=== PATIENT | female | born 1990 | race Caucasian/White ===

== ENCOUNTER 2017-08-23 15:14 | Observation (INO) ==
--- NOTE | 2017-08-23 16:02 | Emergency Department Note ---
Disposition Clinical Impression: Ovarian torsion Abdominal pain Qualifiers: Abdominal location: left lower quadrant Qualified Code(s): R10.32 - Left lower quadrant pain Disposition: Admitted As Inpatient Condition: Fair Reasons to Return/Additional Instructions: 22:29 Referrals: Justine Ponce MD [Primary Care Provider] - Tia Lozano [Family Provider] - Forms: ED Satisfaction Letter, Work/School Release Abdominal Pain HPI - General Chief Complaint: ED Abdominal Pain Stated Complaint: ABD pain/vomiting/fever Time Seen by Provider: 08/23/17 15:25 Source: patient Mode of arrival: private vehicle Limitations: no limitations Nursing Notes Reviewed: Yes Vital Signs Reviewed: Yes - History of Present Illness Pt Subjective Complaint: abdominal pain Onset (ago): month(s) Consistency: Worsening Location: LLQ, L flank Pain Severity: severe Pain Scale: 8 Quality: sharp Radiation: back Improves with: other (deep palpation in LLQ) Worsens with: nothing Context: other (Pain arose 8 weeks and has continued since then for past 3.5 months. Patiend denies relief of abdominal pain with defecation. No acute urgency of defection. No personal history of IBS.) Associated symptoms: Reports: nausea, vomiting (Non-bloody, non-bilious yesterday ), fever (intermittent ), chills, hematochezia (painless hematochezia for last 4 months. Endorses formed brown stool. ). Denies: hematemesis, melena , hematuria Treatments prior to arrival: NSAIDs - Related Data LMP (females 10-50): other (4 months) Home Medications Medication Instructions Recorded Confirmed Acetaminophen [Tylenol] 325 mg PO Q6H PRN 07/02/17 07/02/17 Previous Rx's Medication Instructions Recorded Ciprofloxacin [Cipro] 500 mg PO BID #20 tablet 07/02/17 Ondansetron ODT [Zofran ODT] 4 mg SL Q4HR PRN #6 tab.rapdis 07/02/17 Promethazine [Phenergan] 25 mg PO Q8HR PRN #10 tablet 07/02/17 Sulfamethoxazole/Trimeth DS 1 each PO BID #20 tablet 07/02/17 [Bactrim DS] Cephalexin [Keflex] 500 mg PO BID #14 capsule 07/31/17 Allergies Allergy/AdvReac Type Severity Reaction Status Date / Time codeine Allergy See Verified 08/23/17 15:17 Comments ketorolac [From Toradol] Allergy Rash Verified 08/23/17 15:17 Constitutional: Reports: as per HPI, fever (intermittent ), chills Cardiovascular: Reports: as per HPI. Denies: chest pain Respiratory: Reports: as per HPI. Denies: dyspnea Gastrointestinal: Reports: as per HPI Genitourinary: Denies: urgency, dysuria, frequency, hematuria Musculoskeletal: Reports: as per HPI, back pain Abdominal Pain PMH - Past Medical History Medical history: Reports: no medical history Female Surgical History: Reports: breast surgery, cholecystectomy, thyroidectomy V[employer]OCK [employer]AYER history: Reports: other Psychiatric history: Reports: no psych history - Social History Smoking status: Never smoker Alcohol use: Reports: none Drug use: Reports: none Physical Exam - General General appearance: alert, in no apparent distress - Head Head exam: atraumatic, normocephalic - Chest Chest inspection: Present: symmetric chest wall rise. Absent: tenderness - Respiratory Respiratory exam: Present: normal lung sounds bilaterally. Absent: respiratory distress, wheezes - Cardiovascular Cardiovascular exam: Present: normal rhythm, tachycardia, +S1, +S2 - Abdominal Exam Abdominal exam: Present: soft, tenderness (LLQ). Absent: distention, guarding, rebound, rigidity - Female Speculum Exam: Present: other (No abdominal masses palpated. Normal external genitalia. No vaginal lesions or atrophic mucosa noted. White, creme-colored cervical discharge. Bimanual exam limited by patient's body habitus. No adnexal tenderness. No ovaries palpated.) Course - Reevaluation(s) Reevaluation #1: 17:15 - Pelvic exam performed: Medium-sized speculum, lubricated with water- soluble lubricant. Speculum inserted, with applied downward pressure. Exam findings noted in exam section. Reevaluation #2: 18:00 (approx.) - Pt has not yet been able to submit sample for UA and urine test, thus labs pending. CBC and BMP reviewed with Dr. Ricci. Dr. Ricci at bedside to evaluate patient. Reevaluation #3: approx 19:30 CT result has been reviewed with Dr. Ricci, patient and family. U/S technologist has been called for U/S in ED. - Consultations Consultation #1: 22:00- radiology felt to Dr. allred, possible ovarian torsion high Dr. Ricci made consultation with Lease Administration Supervisor. Consultation #2: approx 10:30 PM - Dr. James at bedside with SUPERINTENDENT MENAGERIE. Dr. James recommends surgery, given report findings. Patient agrees with plan. Preoperative planning begun. Pt will be admitted. Vital Signs Temperature 98.5 F 08/23/17 15:16 Pulse Rate 130 08/23/17 15:16 Respiratory Rate 16 08/23/17 15:16 Blood Pressure 136/65 08/23/17 15:16 O2 Sat by Pulse Oximetry 97 08/23/17 15:16 Temperature 99.1 F 08/23/17 16:01 Pulse Rate 105 08/23/17 19:17 Respiratory Rate 16 08/23/17 19:17 Blood Pressure 133/77 08/23/17 19:17 O2 Sat by Pulse Oximetry 97 08/23/17 19:17 Oxygen Delivery Oxygen Delivery Room Air Abdominal Pain - MDM Narrative Medical decision making narrative: 27 y F presenting with LLQ abdominal pain x 4 months. Intermittent fevers. Endorses painless hematochezia. Hematochezia associated with systemic symptoms such as intermittent fever and abdominal pain which is not commonly associated with hemorrhoids and possibly suggestive for underlying etiology. Will proceed with CT, CBC, BMP. White count is elevated. CT abdomen/pelvis demonstrated a rounded heterogeneous mass in the cul-de-sac measuring about 6.5 cm in size, with " New complex free fluid within the pelvis". - Medical Records Medical records reviewed: Yes I reviewed the patient's medical records. - Lab Data Lab results reviewed: Yes I reviewed the patient's lab results. Result diagrams: 08/23/17 15:54 08/23/17 15:54 Lab Results 08/23/17 08/23/17 08/23/17 Range/Units 15:54 15:54 17:22 WBC 12.4 H (4.3-11.1) K/mcL RBC 4.92 (3.82-4.97) M/mcL Hgb 12.9 (11.5-15.4) g/dL Hct 38.5 (35.3-44.9) % MCV 78.3 L (83.0-100.0) fL MCH 26.2 L (28.0-33.3) pg MCHC 33.5 (31.6-35.5) g/dL RDW 14.6 H (11.5-14.5) % Plt Count 384 (140-400) K/mcL MPV 8.9 L (9.4-12.4) fL Immature Gran % 0.6 (0-4) % Seg Neutrophils % 80.2 % Lymphocytes % 12.5 % Monocytes % 6.4 % Eosinophils % 0.1 % Basophils % 0.2 % Neutrophils # 9.9 H (1.6-8.9) K/mcL Lymphocytes # 1.6 (0.6-4.6) K/mcL Monocytes # 0.8 (0.0-1.3) K/mcL Eosinophils # 0.0 (0.0-0.6) K/mcL Basophils # 0.0 (0.0-0.2) K/mcL Sodium 135 L (136-145) mEq/L Potassium 3.8 (3.5-5.1) mEq/L Chloride 102 (98-107) mEq/L Carbon Dioxide 22 L (23-29) mEq/L BUN 8 (6-20) mg/dL Creatinine 0.68 (0.60-1.20) mg/dL Est GFR ( Amer) > 60 (> 60) Est GFR (Non-Af Amer) > 60 (> 60) BUN/Creatinine Ratio 12 (6-26) Glucose 118 H (70-105) mg/dL Calculated Osmolality 279 L (280-300) Calcium 9.7 (8.6-10.3) mg/dL Urine Color (Yellow) Urine Clarity (Clear) Urine pH (5.0-8.0) pH Units Ur Specific [place] (1.010-1.025) Urine Protein (Neg-Trace) mg/dL Urine Glucose (UA) (Normal) mg/dL Urine Ketones (Negative) mg/dL Urine Blood (Negative) Urine Nitrite (Negative) Urine Bilirubin (Negative) Urine Urobilinogen (Normal) mg/dL Ur Leukocyte Esterase (Negative) Urine Microscopic RBC (0-3) per hpf Urine Microscopic WBC (0-3) per hpf Ur Squamous Epith Cells (None-Few) per lpf Urine Bacteria (None-Few) per hpf Hyaline Casts (None-Few) per lpf Ur Culture Indicated? (NO) Urine Test (Negative) Chlam trachomat DNA PCR NOT DETECTED (Not Detect) N.gonorrhoeae DNA (PCR) NOT DETECTED (Not Detect) 08/23/17 08/23/17 Range/Units 18:05 18:05 WBC (4.3-11.1) K/mcL RBC (3.82-4.97) M/mcL Hgb (11.5-15.4) g/dL Hct (35.3-44.9) % MCV (83.0-100.0) fL MCH (28.0-33.3) pg MCHC (31.6-35.5) g/dL RDW (11.5-14.5) % Plt Count (140-400) K/mcL MPV (9.4-12.4) fL Immature Gran % (0-4) % Seg Neutrophils % % Lymphocytes % % Monocytes % % Eosinophils % % Basophils % % Neutrophils # (1.6-8.9) K/mcL Lymphocytes # (0.6-4.6) K/mcL Monocytes # (0.0-1.3) K/mcL Eosinophils # (0.0-0.6) K/mcL Basophils # (0.0-0.2) K/mcL Sodium (136-145) mEq/L Potassium (3.5-5.1) mEq/L Chloride (98-107) mEq/L Carbon Dioxide (23-29) mEq/L BUN (6-20) mg/dL Creatinine (0.60-1.20) mg/dL Est GFR ( Amer) (> 60) Est GFR (Non-Af Amer) (> 60) BUN/Creatinine Ratio (6-26) Glucose (70-105) mg/dL Calculated Osmolality (280-300) Calcium (8.6-10.3) mg/dL Urine Color Yellow (Yellow) Urine Clarity Slightly Hazy (Clear) Urine pH 6.0 (5.0-8.0) pH Units Ur Specific [place] 1.014 (1.010-1.025) Urine Protein 100 H (Neg-Trace) mg/dL Urine Glucose (UA) Normal (Normal) mg/dL Urine Ketones Negative (Negative) mg/dL Urine Blood Small H (Negative) Urine Nitrite Negative (Negative) Urine Bilirubin Negative (Negative) Urine Urobilinogen Normal (Normal) mg/dL Ur Leukocyte Esterase Negative (Negative) Urine Microscopic RBC 5-15 H (0-3) per hpf Urine Microscopic WBC 0-3 (0-3) per hpf Ur Squamous Epith Cells Many H (None-Few) per lpf Urine Bacteria None Seen (None-Few) per hpf Hyaline Casts None Seen (None-Few) per lpf Ur Culture Indicated? NO (NO) Urine Test Negative (Negative) Chlam trachomat DNA PCR (Not Detect) N.gonorrhoeae DNA (PCR) (Not Detect) - Radiology Data Radiology results reviewed: Yes I reviewed the patient's radiology results. Bedside abdominal U/S, performed by Dr. Wynne, 16:30 - No abnormalities visualized. Impressions Abdomen/Pelvis CT 08/23/17 16:11 IMPRESSION: 1. New complex free fluid within the pelvis. Rounded complex hypoechoic mass posteriorly, possibly focal clot or complex cystic lesion. Ultrasound follow-up recommended. 2. Otherwise stable CT of the abdomen and pelvis. 3. Mild hepatic steatosis. Previous cholecystectomy. Critical results were called by Dr. Chidi Ugalde MD to Malu Mendoza on 08/23/2017 at 19:15. D/ / 08/23/2017 19:18:04 Chidi Ugalde MD / Radha Sneed Interpreting Provider: Chidi Ugalde MD
[2017-08-23 16:10] LABS: Basophils % 0.2 %; Eosinophils % 0.1 %; Hematocrit 38.5 % (35.3-44.9); Hemoglobin 12.9 g/dL (11.5-15.4); Immature Granulocytes % 0.6 % (0-4); Lymphocytes # 1.6 K/mcL (0.6-4.6); Lymphocytes % 12.5 %; Mean Corpuscular HGB Conc 33.5 g/dL (31.6-35.5); Mean Corpuscular Hemoglobin 26.2 pg (28.0-33.3); Mean Corpuscular Volume 78.3 fL (83.0-100.0); Mean Platelet Volume 8.9 fL (9.4-12.4); Monocytes # 0.8 K/mcL (0.0-1.3); Monocytes % 6.4 %; Neutrophils # 9.9 K/mcL (1.6-8.9); Platelet Count 384 K/mcL (140-400); Red Blood Count 4.92 M/mcL (3.82-4.97); Red Cell Distribution Width 14.6 % (11.5-14.5); Segmented Neutrophils % 80.2 %
[2017-08-23] MEDS ORDERED: Isovue-370 500 ML INFUS..BTL IV ONE (16:11)
[2017-08-23] MEDS ORDERED: *HR* FentaNYL (PF) 100 MCG/2 ML VIAL IVP ONE ×4 (16:13→23:15)
[2017-08-23 16:35] LABS: BUN/Creatinine Ratio 12 (6-26); Blood Urea Nitrogen 8 mg/dL (6-20); Calcium 9.7 mg/dL (8.6-10.3); Carbon Dioxide 22 mEq/L (23-29); Chloride 102 mEq/L (98-107); Glucose 118 mg/dL (70-105); Osmolality,Calculated 279 (280-300); Potassium 3.8 mEq/L (3.5-5.1); Sodium 135 mEq/L (136-145); eGFR For African Americans > 60 (> 60); eGFR For Non-African Americans > 60 (> 60)
[2017-08-23] MEDS ORDERED: *HR* Promethazine 25 MG/ML VIAL IVP PRN (16:48)
[2017-08-23] MEDS ORDERED: 0.9 % Sodium Chloride 1,000 ML IVC ONE (16:58)
[2017-08-23 18:17] LABS: Bilirubin,Urine Negative (Negative); Blood,Urine Small (Negative); Color,Urine Yellow (Yellow); Glucose,Urine (UA) Normal (Normal); Ketones,Urine Negative (Negative); Leukocyte Esterase,Urine Negative (Negative); Nitrite,Urine Negative (Negative); Protein,Urine 100 mg/dL (Neg-Trace); Specific Gravity,Urine 1.014 (1.010-1.025); Urobilinogen,Urine Normal (Normal)
[2017-08-23 18:19] LABS: Bacteria,Urine None Seen per hpf (None-Few); Hyaline Casts,Urine None Seen per lpf (None-Few); Squamous Epithelial Cell,Urine Many per lpf (None-Few); WBC,Urine 0-3 per hpf (0-3)
[2017-08-23 18:26] LABS: Clarity,Urine Slightly Hazy (Clear)
--- NOTE | 2017-08-23 20:16 | Emergency Department Note ---
Disposition Clinical Impression: Ovarian torsion Abdominal pain Qualifiers: Abdominal location: left lower quadrant Qualified Code(s): R10.32 - Left lower quadrant pain Disposition: Admitted As Inpatient Condition: Fair Abdominal Pain HPI - General Chief Complaint: ED Abdominal Pain Stated Complaint: ABD pain/vomiting/fever Time Seen by Provider: 08/23/17 15:25 Source: patient Mode of arrival: private vehicle Limitations: no limitations Nursing Notes Reviewed: Yes Vital Signs Reviewed: Yes - History of Present Illness Pt Subjective Complaint: abdominal pain Location: LLQ, L flank Pain Severity: severe Pain Scale: 8 Quality: sharp Improves with: other (deep palpation in LLQ) Worsens with: nothing Context: other (Pain arose 8 weeks and has continued since then for past 3.5 months. Patiend denies relief of abdominal pain with defecation. No acute urgency of defection. No personal history of IBS.) Associated symptoms: Reports: nausea, vomiting (Non-bloody, non-bilious yesterday ), fever (intermittent ), chills, hematochezia (painless hematochezia for last 4 months. Endorses formed brown stool. ). Denies: hematemesis, melena , hematuria - Related Data Home Medications Medication Instructions Recorded Confirmed Acetaminophen [Tylenol] 325 mg PO Q6H PRN 07/02/17 07/02/17 Previous Rx's Medication Instructions Recorded Ciprofloxacin [Cipro] 500 mg PO BID #20 tablet 07/02/17 Ondansetron ODT [Zofran ODT] 4 mg SL Q4HR PRN #6 tab.rapdis 07/02/17 Promethazine [Phenergan] 25 mg PO Q8HR PRN #10 tablet 07/02/17 Sulfamethoxazole/Trimeth DS 1 each PO BID #20 tablet 07/02/17 [Bactrim DS] Cephalexin [Keflex] 500 mg PO BID #14 capsule 07/31/17 Allergies Allergy/AdvReac Type Severity Reaction Status Date / Time codeine Allergy See Verified 08/23/17 15:17 Comments ketorolac [From Toradol] Allergy Rash Verified 08/23/17 15:17 Constitutional: Reports: as per HPI, fever (intermittent ), chills Cardiovascular: Reports: as per HPI. Denies: chest pain Respiratory: Reports: as per HPI. Denies: dyspnea Gastrointestinal: Reports: as per HPI Genitourinary: Denies: urgency, dysuria, frequency, hematuria Musculoskeletal: Reports: as per HPI, back pain Abdominal Pain PMH - Past Medical History Medical history: Reports: no medical history Female Surgical History: Reports: breast surgery, cholecystectomy, thyroidectomy COUNTER SALES REPRESENTATIVE history: Reports: other Psychiatric history: Reports: no psych history - Social History Smoking status: Never smoker Alcohol use: Reports: none Drug use: Reports: none Physical Exam - General Limitations: no limitations General appearance: alert, in no apparent distress Course Vital Signs Temperature 98.5 F 08/23/17 15:16 Pulse Rate 130 08/23/17 15:16 Respiratory Rate 16 08/23/17 15:16 Blood Pressure 136/65 08/23/17 15:16 O2 Sat by Pulse Oximetry 97 08/23/17 15:16 Temperature 99.1 F 08/23/17 16:01 Pulse Rate 90 08/23/17 21:17 Respiratory Rate 16 08/23/17 21:17 Blood Pressure 144/96 08/23/17 21:17 O2 Sat by Pulse Oximetry 97 08/23/17 21:17 Oxygen Delivery Oxygen Delivery Room Air Abdominal Pain - Lab Data Result diagrams: 08/23/17 15:54 08/23/17 15:54 Lab Results 08/23/17 08/23/17 08/23/17 Range/Units 15:54 15:54 17:22 WBC 12.4 H (4.3-11.1) K/mcL RBC 4.92 (3.82-4.97) M/mcL Hgb 12.9 (11.5-15.4) g/dL Hct 38.5 (35.3-44.9) % MCV 78.3 L (83.0-100.0) fL MCH 26.2 L (28.0-33.3) pg MCHC 33.5 (31.6-35.5) g/dL RDW 14.6 H (11.5-14.5) % Plt Count 384 (140-400) K/mcL MPV 8.9 L (9.4-12.4) fL Immature Gran % 0.6 (0-4) % Seg Neutrophils % 80.2 % Lymphocytes % 12.5 % Monocytes % 6.4 % Eosinophils % 0.1 % Basophils % 0.2 % Neutrophils # 9.9 H (1.6-8.9) K/mcL Lymphocytes # 1.6 (0.6-4.6) K/mcL Monocytes # 0.8 (0.0-1.3) K/mcL Eosinophils # 0.0 (0.0-0.6) K/mcL Basophils # 0.0 (0.0-0.2) K/mcL PT (9.4-12.1) Seconds INR APTT (26.0-36.0) Seconds Sodium 135 L (136-145) mEq/L Potassium 3.8 (3.5-5.1) mEq/L Chloride 102 (98-107) mEq/L Carbon Dioxide 22 L (23-29) mEq/L BUN 8 (6-20) mg/dL Creatinine 0.68 (0.60-1.20) mg/dL Est GFR ( Amer) > 60 (> 60) Est GFR (Non-Af Amer) > 60 (> 60) BUN/Creatinine Ratio 12 (6-26) Glucose 118 H (70-105) mg/dL Calculated Osmolality 279 L (280-300) Calcium 9.7 (8.6-10.3) mg/dL Urine Color (Yellow) Urine Clarity (Clear) Urine pH (5.0-8.0) pH Units Ur Specific [place] (1.010-1.025) Urine Protein (Neg-Trace) mg/dL Urine Glucose (UA) (Normal) mg/dL Urine Ketones (Negative) mg/dL Urine Blood (Negative) Urine Nitrite (Negative) Urine Bilirubin (Negative) Urine Urobilinogen (Normal) mg/dL Ur Leukocyte Esterase (Negative) Urine Microscopic RBC (0-3) per hpf Urine Microscopic WBC (0-3) per hpf Ur Squamous Epith Cells (None-Few) per lpf Urine Bacteria (None-Few) per hpf Hyaline Casts (None-Few) per lpf Ur Culture Indicated? (NO) Urine Test (Negative) Chlam trachomat DNA PCR NOT DETECTED (Not Detect) N.gonorrhoeae DNA (PCR) NOT DETECTED (Not Detect) Blood Type 08/23/17 08/23/17 08/23/17 Range/Units 18:05 18:05 22:38 WBC (4.3-11.1) K/mcL RBC (3.82-4.97) M/mcL Hgb (11.5-15.4) g/dL Hct (35.3-44.9) % MCV (83.0-100.0) fL MCH (28.0-33.3) pg MCHC (31.6-35.5) g/dL RDW (11.5-14.5) % Plt Count (140-400) K/mcL MPV (9.4-12.4) fL Immature Gran % (0-4) % Seg Neutrophils % % Lymphocytes % % Monocytes % % Eosinophils % % Basophils % % Neutrophils # (1.6-8.9) K/mcL Lymphocytes # (0.6-4.6) K/mcL Monocytes # (0.0-1.3) K/mcL Eosinophils # (0.0-0.6) K/mcL Basophils # (0.0-0.2) K/mcL PT 12.1 (9.4-12.1) Seconds INR 1.1 APTT 32.4 (26.0-36.0) Seconds Sodium (136-145) mEq/L Potassium (3.5-5.1) mEq/L Chloride (98-107) mEq/L Carbon Dioxide (23-29) mEq/L BUN (6-20) mg/dL Creatinine (0.60-1.20) mg/dL Est GFR ( Amer) (> 60) Est GFR (Non-Af Amer) (> 60) BUN/Creatinine Ratio (6-26) Glucose (70-105) mg/dL Calculated Osmolality (280-300) Calcium (8.6-10.3) mg/dL Urine Color Yellow (Yellow) Urine Clarity Slightly Hazy (Clear) Urine pH 6.0 (5.0-8.0) pH Units Ur Specific [place] 1.014 (1.010-1.025) Urine Protein 100 H (Neg-Trace) mg/dL Urine Glucose (UA) Normal (Normal) mg/dL Urine Ketones Negative (Negative) mg/dL Urine Blood Small H (Negative) Urine Nitrite Negative (Negative) Urine Bilirubin Negative (Negative) Urine Urobilinogen Normal (Normal) mg/dL Ur Leukocyte Esterase Negative (Negative) Urine Microscopic RBC 5-15 H (0-3) per hpf Urine Microscopic WBC 0-3 (0-3) per hpf Ur Squamous Epith Cells Many H (None-Few) per lpf Urine Bacteria None Seen (None-Few) per hpf Hyaline Casts None Seen (None-Few) per lpf Ur Culture Indicated? NO (NO) Urine Test Negative (Negative) Chlam trachomat DNA PCR (Not Detect) N.gonorrhoeae DNA (PCR) (Not Detect) Blood Type 08/23/17 Range/Units 22:38 WBC (4.3-11.1) K/mcL RBC (3.82-4.97) M/mcL Hgb (11.5-15.4) g/dL Hct (35.3-44.9) % MCV (83.0-100.0) fL MCH (28.0-33.3) pg MCHC (31.6-35.5) g/dL RDW (11.5-14.5) % Plt Count (140-400) K/mcL MPV (9.4-12.4) fL Immature Gran % (0-4) % Seg Neutrophils % % Lymphocytes % % Monocytes % % Eosinophils % % Basophils % % Neutrophils # (1.6-8.9) K/mcL Lymphocytes # (0.6-4.6) K/mcL Monocytes # (0.0-1.3) K/mcL Eosinophils # (0.0-0.6) K/mcL Basophils # (0.0-0.2) K/mcL PT (9.4-12.1) Seconds INR APTT (26.0-36.0) Seconds Sodium (136-145) mEq/L Potassium (3.5-5.1) mEq/L Chloride (98-107) mEq/L Carbon Dioxide (23-29) mEq/L BUN (6-20) mg/dL Creatinine (0.60-1.20) mg/dL Est GFR ( Amer) (> 60) Est GFR (Non-Af Amer) (> 60) BUN/Creatinine Ratio (6-26) Glucose (70-105) mg/dL Calculated Osmolality (280-300) Calcium (8.6-10.3) mg/dL Urine Color (Yellow) Urine Clarity (Clear) Urine pH (5.0-8.0) pH Units Ur Specific [place] (1.010-1.025) Urine Protein (Neg-Trace) mg/dL Urine Glucose (UA) (Normal) mg/dL Urine Ketones (Negative) mg/dL Urine Blood (Negative) Urine Nitrite (Negative) Urine Bilirubin (Negative) Urine Urobilinogen (Normal) mg/dL Ur Leukocyte Esterase (Negative) Urine Microscopic RBC (0-3) per hpf Urine Microscopic WBC (0-3) per hpf Ur Squamous Epith Cells (None-Few) per lpf Urine Bacteria (None-Few) per hpf Hyaline Casts (None-Few) per lpf Ur Culture Indicated? (NO) Urine Test (Negative) Chlam trachomat DNA PCR (Not Detect) N.gonorrhoeae DNA (PCR) (Not Detect) Blood Type A POSITIVE Attestation Statement - Attestation Attestation: I, Sriram Ricci, examined this patient and my medical decision-making was reviewed with the AUTOMATION OPERATOR/PA/Advanced Practice Nurse/Resident Physician. I agree with the documented findings, disposition and treatment plan as described except to the extent set forth below. 27-year-old female presents emergency Department with concerns of suprapubic and left lower quadrant abdominal pain. Patient states symptoms have been present intermittently over the past 4 months since her delivery. Patient had an uncomplicated vaginal delivery however since that time she has had a persistent "sticky clear mucus discharge" she has followed with her COUNTER SALES REPRESENTATIVE physician as an outpatient multiple times since her who said that it was likely within normal limits after the delivery. Patient denies foul-smelling discharge, fever, recent trauma. There is no vaginal bleeding. Patient reports an episode of bright red blood per rectum yesterday, this was associated with a nonpainful bowel movement, it was bright red blood on the clothing paper and in the bowl however she also had formed brown stool. Patient has a history of hemorrhoids and she states that this is similar to other occurrences. No personal or family history of ulcerative colitis or Crohn 's disease. Patient had laboratory evaluation which was largely within normal limits. She is not today. CT of the abdomen and pelvis shows complex free fluid within the pelvis. Patient states she had a transvaginal ultrasound performed 2 weeks ago which did not show significant abnormality. Today the patient's pain has been intermittent and severe. We will rpt transvaginal ultrasound to rule out ovarian torsion due to the intermittent and severe nature of the patient's pain. Imaging is pending at this time. Imaging returned as a possible left ovarian torsion with enlarged ovary with decreased venous flow. OB was consult immediately and then evaluated the patient at bedside in the emergency department. They concurred with the radiologist reading and will take to the OR.
--- NOTE | 2017-08-23 22:34 | OB/GYN History & Physical ---
Date of Encounter: 08/23/17 Time of Encounter: 22:32 Assessment and Plan (1) Pelvic pain Current visit: Yes Status: Acute (2) Torsion of ovary Current visit: Yes Status: Acute Admit for surgery IV fluids NPO Labs - Blood type and coagulation studies Dr. James consulted based on clinical exam and physical findings Decision to proceed with surgery Full care turned over to Dr. James History of Present Illness Chief complaint: abdominal pain HPI: Ms. Becerra is a 27 year old female who presented to the ER [facility] with a 2 month history of pelvic pain progressively worsening. She was evaluated 2 weeks ago for the same pain and it was found to be benign. This evening via ultrasound her left ovary was seen to be enlarged and without venous blood flow. On bimanual exam she has diffuse pelvic tenderness with a palpable mass leaning toward the left side. Of note she reports she has had nausea and vomiting since last night and denies diarrhea. She has been afebrile. She is a and desires future fertility. Past Med Surg Social Fam HX - Past Medical History Medical history: no medical history Psychiatric history: no psych history - Social History Smoking Status: Never smoker Smokeless Tobacco Status: No Alcohol use: none Drug use: none Obstetrical History - Pregnancies : 1 Para: 1 Term: 1 (~05/25) : 0 Ab's: 0 Livin Medications and Allergies Acetaminophen [Tylenol] 325 mg PO Q6H PRN 07/02/17 [History] Ciprofloxacin [Cipro] 500 mg PO BID #20 tablet 07/02/17 [Rx] Ondansetron ODT [Zofran ODT] 4 mg SL Q4HR PRN #6 tab.rapdis 07/02/17 [Rx] Promethazine [Phenergan] 25 mg PO Q8HR PRN #10 tablet 07/02/17 [Rx] Sulfamethoxazole/Trimeth DS [Bactrim DS] 1 each PO BID #20 tablet 07/02/17 [Rx] Cephalexin [Keflex] 500 mg PO BID #14 capsule 07/31/17 [Rx] 3 Allergy/AdvReac Type Severity Reaction Status Date / Time codeine Allergy See Verified 08/23/17 15:17 Comments ketorolac [From Toradol] Allergy Rash Verified 08/23/17 15:17 Review of System OB All systems PM: reviewed and no additional remarkable complaints except as stated Exam - Vital Signs Vital signs: Initial Vital Signs Temp Pulse Resp BP Pulse Ox 98.5 F 130 16 136/65 97 08/23/17 15:16 08/23/17 15:16 08/23/17 15:16 08/23/17 15:16 08/23/17 15:16 - Constitutional Constitutional: well developed, well nourished, average body habitus, moderate distress - HEENT HEENT: Normocephaly, Mucus Membranes Moist - Neck Neck exam: full ROM - Lungs Respiratory exam: CTAB - Cardiovascular Cardiovascular exam: RRR, +S1, +S2 - Breasts Breast: bilateral: normal - Abdomen Abdomen: Present: bowel sounds normal, diffuse tenderness, mass - Extremities Extremities exam: normal inspection, radial pulses palpable and symmetrical - Vulva Vulva: bilateral: normal - Vagina Vagina: Present: normal moisture - Uterus Uterus exam: Present: tender - Adnexa Adnexa: left: mass, bilateral: tenderness - Anus/Rectum Anus/Rectum: Present: normal perianal skin Results Result Diagrams: 08/23/17 15:54 08/23/17 15:54 Abnormal lab results WBC 12.4 K/mcL (4.3-11.1) H 08/23/17 15:54 MCV 78.3 fL (83.0-100.0) L 08/23/17 15:54 MCH 26.2 pg (28.0-33.3) L 08/23/17 15:54 RDW 14.6 % (11.5-14.5) H 08/23/17 15:54 MPV 8.9 fL (9.4-12.4) L 08/23/17 15:54 Neutrophils # 9.9 K/mcL (1.6-8.9) H 08/23/17 15:54 Sodium 135 mEq/L (136-145) L 08/23/17 15:54 Carbon Dioxide 22 mEq/L (23-29) L 08/23/17 15:54 Glucose 118 mg/dL (70-105) H 08/23/17 15:54 Calculated Osmolality 279 (280-300) L 08/23/17 15:54 Urine Protein 100 mg/dL (Neg-Trace) H 08/23/17 18:05 Urine Blood Small (Negative) H 08/23/17 18:05 Urine Microscopic RBC 5-15 per hpf (0-3) H 08/23/17 18:05 Ur Squamous Epith Cells Many per lpf (None-Few) H 08/23/17 18:05 All other labs normal.
[2017-08-23 22:54] LABS: INR 1.1; Prothrombin Time 12.1 Seconds (9.4-12.1)
[2017-08-23 22:56] LABS: Activated Partial Thrombo Time 32.4 Seconds (26.0-36.0)
--- NOTE | 2017-08-24 00:11 | Anesthesia Evaluation PreOp ---
Date of Encounter: 08/24/17 Time of Encounter: 00:10 - Past History Planned Operation: Exploratory Lap, Salpingectomy Cardiac History: Denies any Significant Hx Pulmonary History: Denies Any Significant HX SECURITIES CLERK History: Denies Any Significant HX Other Medical History: Other (Obese) Anesthesia History: No Prior Anesthetic Complications : No Test: Negative Alcohol Use: none Drug use: none Medications and Allergies Acetaminophen [Tylenol] 325 mg PO Q6H PRN 07/02/17 [History] Ciprofloxacin [Cipro] 500 mg PO BID #20 tablet 07/02/17 [Rx] Ondansetron ODT [Zofran ODT] 4 mg SL Q4HR PRN #6 tab.rapdis 07/02/17 [Rx] Promethazine [Phenergan] 25 mg PO Q8HR PRN #10 tablet 07/02/17 [Rx] Sulfamethoxazole/Trimeth DS [Bactrim DS] 1 each PO BID #20 tablet 07/02/17 [Rx] Cephalexin [Keflex] 500 mg PO BID #14 capsule 07/31/17 [Rx] 3 Allergy/AdvReac Type Severity Reaction Status Date / Time codeine Allergy See Verified 08/23/17 15:17 Comments ketorolac [From Toradol] Allergy Rash Verified 08/23/17 15:17 - Meds/Allergy Pre-op Review Medications Reviewed: Yes Allergies Reviewed: Yes Beta Blockers on Current Med List: No Anesthesia Results - Labs 08/23/17 15:54 08/23/17 15:54 Anesthesia Exam O2 Sat Height 1.73 m Weight 99.79 kg O2 Sat by Pulse Oximetry 97 O2 Sat by Pulse Oximetry 97 O2 Sat by Pulse Oximetry 96 O2 Sat by Pulse Oximetry 97 O2 Sat by Pulse Oximetry 97 O2 Sat by Pulse Oximetry 98 O2 Sat by Pulse Oximetry 97 Vital Signs Temp Pulse Resp BP Pulse Ox 98.5 F 130 16 136/65 97 08/23/17 15:16 08/23/17 15:16 08/23/17 15:16 08/23/17 15:16 08/23/17 15:16 Height: 5'8 Weight: 220 NPO (# of Hours): MN - HEENT Pupil (Motor): Pupils equal, EOMI Mallampati: II Teeth: Normal Oral Opening: Greater than 3 - SECURITIES CLERK LOC: Oriented SECURITIES CLERK Motor: Normal RUE, Normal LUE, Normal RLE, Normal LLE, Normal Face SECURITIES CLERK Sensory: Normal: RUE, LUE, RLE, LLE, Face - Cardiac Rhythm: Regular Murmur: None JVD: No Carotid Bruit: No - Pulmonary Breath Sounds: bilateral Clear Respiratory Effort: Symmetrical Anesthesia Assess/Plan ASA Score: 2, E Modified Tanja Scale for Level of Consciousness: Cooperative, oriented, and tranquil Anesthetic Plan: General Monitoring Plan: Standard Monitors Recovery Plan: PACU (Discussed GA, agrees to proceed)
[2017-08-24] MEDS ORDERED: Acetaminophen IV 1,000 MG/100 ML INFUS..BTL ONE (00:18)
[2017-08-24] MEDS ORDERED: Famotidine 20 MG/2 ML VIAL ONE (00:18)
[2017-08-24] MEDS ORDERED: *HR* FentaNYL (PF) 100 MCG/2 ML VIAL ONE ×2 (00:27→00:47)
[2017-08-24] MEDS ORDERED: *HR* Propofol 200 MG/20 ML VIAL IVP ONE (00:27)
[2017-08-24] MEDS ORDERED: Bupivacaine/EPI 1:200k 0.5%PF 10 ML VIAL ONE (00:28)
[2017-08-24] MEDS ORDERED: Ondansetron 4 MG/2 ML VIAL ONE (00:29)
[2017-08-24] MEDS ORDERED: Dexamethasone 4 MG/ML VIAL ONE (00:29)
[2017-08-24] MEDS ORDERED: Lidocaine -MPF 2% 2 ML VIAL ONE ×2 (00:29→00:48)
[2017-08-24] MEDS ORDERED: *HR* Rocuronium Bromide 50 MG/5 ML VIAL ONE (00:29)
--- NOTE | 2017-08-24 00:30 | Operative Note ---
Date of procedure: 08/24/17 Pre-op diagnosis: Severe pelvic pain, left ovarian cyst, left ovarian torsion Post-op diagnosis: same (With moderate amount of fluid in the pelvis and necrotic-looking left ovary and tube) Procedure: Laparoscopic left salpingo-oophorectomy Anesthesia: DOMINGAA Surgeon: Herberth James Was there an cardiology physician assistant present: No Estimated blood loss (cc): 10 Specimen: Left ovary and tube Condition: stable Disposition: PACU Procedure in Detail: Patient is a 27-year-old female who presented to the emergency room with complaint of severe lower abdominal pain. Patient states she been having pain in lower abdomen for the past 2 months has been seeing her FLOOR BROKER for this but they could not identify the source of the pain patient states at approximately 8 :00 last night started having severe pain in the left lower quadrant but did not bother calling her FLOOR BROKER she states the pain got intense this evening and ended up in the emergency room in the ER patient had an ultrasound which showed bilateral ovarian cysts the right measuring 4 cm left 6 cm but the left had no flow suggestive of a torsion. Because of the size the ovary the lack of blood flow to the ovary it was recommended we take to the operating room for possible ovarian cystectomy possible oophorectomy. Procedure: Patient was taken to the operating room and general anesthesia was found to be adequate. She was placed in the dorsal lithotomy position prepped and draped in usual fashion. Timeout was then obtained. A weighted speculum was placed in the vagina the anterior lip of the cervix was grasped with a single-tooth tenaculum and a uterine manipulator was inserted. Speculum was removed and attention was then turned to the abdomen. A small infraumbilical incision was made with a scalpel and a 5 mm blunt trocar was inserted under direct visualization. A pneumoperitoneum was obtained with 4 L of CO2 gas. There were no adhesions to the abdominal wall a second incision was made in the left flank and a 5 mm blunt trocar was inserted under direct visualization. Pelvis was visualized was noted immediately she had significant amount of bloody fluid in the pelvis this was aspirated out approximately 120 mL. Pelvis was visualized she was noted to have a torsion of the left adnexa and it appeared to be necrotic in nature. There was a large clot noted on the fallopian tube and ovary was blackish in color. A third incision was made suprapubically 12 mm trocar was inserted under direct visualization. We untwisted the ovary there was no flow back to this adnexa. We dissected this time it would need to come out using the LigaSure the ureter had been identified then the infundibulopelvic ligament was transected and then the ovary was from the uterus is placed in the upper abdomen the right ovary was evaluated it appeared to be normal I did not see any cystic structures on it at this time it was probably shadowing from the other side that the ultrasound showed. The ovary and to present placed into an Endopouch it would not fit through a 12 mm incision we did have to extend this to get the adnexa out. Pelvis was copiously irrigated no active bleeding noted. The procedure was then terminated the pneumoperitoneum was released followed by the removal of the trochars. The fascia was then closed using 0 Vicryl in a running lock stitch on the suprapubic incision and the 3 skin incisions were closed using a 4-0 Vicryl in a subcuticular manner. Dermabond was then applied. All needles laps and sponge counts were correct 3 she did receive preoperative antibodies.
[2017-08-24] MEDS ORDERED: ceFAZolin 2,000 MG in Water for inj. (sterile) 20 ML IVP ONE (01:20)
[2017-08-24] MEDS ORDERED: *HR* Morphine 10 MG/ML VIAL ONE (01:21)
[2017-08-24] MEDS ORDERED: Ketorolac 30 MG/ML VIAL ONE (01:22)
[2017-08-24] MEDS ORDERED: Neostigmine Methylsulfate 3 MG/3 ML SYRINGE ONE (01:37)
[2017-08-24] MEDS ORDERED: CeFAZolin Premix DUPLEX 2,000 MG/50 ML BAG IVPB ONE (02:00)
--- NOTE | 2017-08-24 02:48 | Anesthesia Evaluation Post Op ---
Date of Encounter: 08/24/17 Time of Encounter: 02:00 - Vital Signs Vital Signs: Vital Signs/O2 Sat/Glucose, Most Current Temp Pulse Resp BP Pulse Ox 08/24/17 02:30 98.3 F 80 16 128/30 96 08/24/17 02:20 97.6 F 73 16 129/74 97 08/24/17 02:10 98.0 F 67 16 133/76 95 08/24/17 02:00 98.0 F 67 14 120/73 94 08/24/17 01:50 98.0 F 66 12 118/75 100 08/23/17 23:27 16 144/96 - Lungs Lungs: Clear Ascult./Percussion - Airway Airway: Non-obstructed - Cardiovascular Regular Rate - Mental Status Mental Status: Alert & Oriented, Answers Appropriately - Pain Pain Scale: 0 - Nausea Vomiting Nausea Vomiting: Not Present - Hydration Hydration: NPO - Discharge PostOp Status: Transfer Patient to floor
[2017-08-24] MEDS ORDERED: *HR* OxyCODONE/APAP 5/325 TABLET PO PRN ×2 (02:52→08:04)
[2017-08-24] MEDS ORDERED: *HR* OxyCODONE/APAP 10/325 TABLET PO PRN ×2 (02:53→08:04)
[2017-08-24] MEDS ORDERED: Ondansetron 4 MG/2 ML VIAL IVP PRN (02:54)
[2017-08-24] MEDS ORDERED: Ringers Solution, Lactated 1,000 ML IVC SCH ×2 (03:00→08:04)
--- NOTE | 2017-08-24 07:14 | Discharge Summary ---
Date of Encounter: 08/24/17 Time of Encounter: 07:10 - Discharge Diagnosis (1) Ovarian torsion Priority: Secondary Status: Acute (2) Pelvic pain Priority: Secondary Status: Acute (3) Torsion of ovary Priority: Primary Status: Acute - Discharge Medications Prescriptions: HYDROcodone/Acet 5/325 mg [[place] 5-325 mg] 1 tab PO Q6H PRN 7 Days #28 tablet PRN Reason: Moderate Pain Home Medications: Acetaminophen [Tylenol] 325 mg PO Q6H PRN 07/02/17 [History] Ciprofloxacin [Cipro] 500 mg PO BID #20 tablet 07/02/17 [Rx] Ondansetron ODT [Zofran ODT] 4 mg SL Q4HR PRN #6 tab.rapdis 07/02/17 [Rx] Promethazine [Phenergan] 25 mg PO Q8HR PRN #10 tablet 07/02/17 [Rx] Sulfamethoxazole/Trimeth DS [Bactrim DS] 1 each PO BID #20 tablet 07/02/17 [Rx] Cephalexin [Keflex] 500 mg PO BID #14 capsule 07/31/17 [Rx] HYDROcodone/Acet 5/325 mg [[place] 5-325 mg] 1 tab PO Q6H PRN 7 Days #28 tablet [Rx] Allergies/Adverse Reactions: 3 Allergy/AdvReac Type Severity Reaction Status Date / Time codeine Allergy See Verified 08/23/17 15:17 Comments ketorolac [From Toradol] Allergy Rash Verified 08/23/17 15:17 Date of admission: 08/23/17 22:54 Primary care physician: Justine Ponce, Discharging clinician: Herberth James Anticipated date of discharge: 08/24/17 - Patient Status Disposition: Home, Self-Care Condition: Good Functional capacity at discharge: independent ambulation Overall status at discharge: patient is progressing back to baseline - Discharge Instructions Follow Up With: Justine Ponce MD [Primary Care Provider] - Tia Lozano [Family Provider] - Blanche James [MOSAIC TILER/Student Nurse] - Herberth James DO [Partnered Physician] - - Diet and Activity Activity: increase activity as tolerated Diet: advance to your usual diet Hospital Course INSTRUMENTATION TECHNOLOGIST Reason for admission: other (Severe pelvic pain, left ovarian cyst, left ovarian torsion) Post op complications: None Discharge diagnosis: other (Same with necrotic left ovary and tube) Procedures: Laparoscopic left salpingo-oophorectomy Hospital course: Patient is a 27-year-old female who had presented to the emergency room complaining of severe left lower quadrant pain she been having this pain since 8 PM the night before she states she is had pain on and off for the past 2-3 months she has been seeing her PRINCIPAL TECHNICAL SPECIALIST for this but they could not identify the source of the pain patient had an ultrasound done through the emergency room which showed a large ovarian cyst on the left with what appeared to be torsion. There is no flow through the adnexa. She was taken to the operating room where a laparoscopy was performed revealing a torsion of the left adnexa but it was necrotic and characteristic black and only untwisted it there was no return flow to the ovary. She did have moderate amount of bloody fluid in the pelvis also which we did aspirate out she underwent a laparoscopic left salpingo- oophorectomy without any complications patient was admitted overnight for pain control by that morning patient was feeling much better and ready to go home she will be discharged home with Vicodin 5 mg #28 1 every 6 hours as needed for pain for 7 days and she will follow up in 2 weeks patient's current patient at the time of discharge was stable. Time Attestation: Total time spent providing and/or coordinating discharge services: Exam - Constitutional Vitals: Temp Pulse Resp BP Pulse Ox 98.7 F 101 16 129/81 96 08/24/17 05:33 08/24/17 05:33 08/24/17 05:33 08/24/17 05:33 08/24/17 05:33 General appearance IM: mild distress, A&O X 3 - Respiratory Respiratory exam: Present: CTAB - Cardiovascular Cardiovascular exam IM: Present: RRR - GI/Abdominal GI/Abdominal exam IM: normal bowel sounds Incision: normal, intact - Rectal Rectal exam: deferred - VTE Documentation of Mechanical Device: Intermittent pneumatic compression device
[2017-08-24] MEDS ORDERED: *HR* HYDROcodone/Acet 10/325 mg TABLET PO PRN (07:15)
[2017-08-24] MEDS ORDERED: *HR* HYDROcodone/Acet 5/325 mg TABLET PO PRN ×3 (07:15→08:36)
[2017-08-24 07:42] VITALS: BP 120/76
[2017-08-24] MEDS ORDERED: Naloxone 0.4 MG/ML INJ IVP PRN (08:04)
== END 2017-08-24 10:10 | disposition home or self-care (01) ==
LOC: EMEROO 15:14 → 1NENUOBS 15:14
PROVIDERS: ADMIT Obstetrics & Gynecology; ATTEND Obstetrics & Gynecology

== ENCOUNTER 2020-06-05 16:50 | Observation (INO) ==
[2020-06-05 17:43] LABS: Bacteria,Urine Few per hpf (None-Few); Bilirubin,Urine Negative (Negative); Blood,Urine Trace (Negative); Clarity,Urine Clear (Clear); Color,Urine Colorless (Yellow); Glucose,Urine (UA) Normal (Normal); Ketones,Urine Negative (Negative); Leukocyte Esterase,Urine Negative (Negative); Nitrite,Urine Negative (Negative); Protein,Urine Negative (Neg-Trace); RBC,Urine 0-3 per hpf (0-3); Specific Gravity,Urine 1.005 (1.010-1.025); Squamous Epithelial Cell,Urine Few per hpf (None-Few); Urobilinogen,Urine Normal (Normal); WBC,Urine 0-3 per hpf (0-3)
[2020-06-05 17:44] LABS: Mucus,Urine Few per lpf (None-Few)
[2020-06-05 19:34] LABS: Candida DNA Not Detected (Not Detect); Gardnerella DNA Not Detected (Not Detect); Trichomonas DNA Not Detected (Not Detect)
== END 2020-06-05 18:30 | disposition home or self-care (01) ==
LOC: 1NENULAB
PROVIDERS: ADMIT Obstetrics & Gynecology; ATTEND Obstetrics & Gynecology

== ENCOUNTER 2020-07-01 14:59 | Observation (INO) ==
[2020-07-01 15:51] LABS: Bacteria,Urine Few per hpf (None-Few); Bilirubin,Urine Negative (Negative); Blood,Urine Trace (Negative); Clarity,Urine Clear (Clear); Color,Urine Light-Yellow (Yellow); Glucose,Urine (UA) Normal (Normal); Ketones,Urine Negative (Negative); Leukocyte Esterase,Urine Negative (Negative); Mucus,Urine Few per lpf (None-Few); Nitrite,Urine Negative (Negative); PH,Urine 6.5 pH Units (5.0-8.0); Protein,Urine Negative (Neg-Trace); RBC,Urine 0-3 per hpf (0-3); Specific Gravity,Urine 1.009 (1.010-1.025); Squamous Epithelial Cell,Urine Few per hpf (None-Few); Urobilinogen,Urine Normal (Normal)
[2020-07-01 18:57] LABS: Candida DNA Not Detected (Not Detect); Gardnerella DNA Not Detected (Not Detect); Trichomonas DNA Not Detected (Not Detect)
== END 2020-07-01 18:25 | disposition home or self-care (01) ==
LOC: 1NENULAB
PROVIDERS: ADMIT Registered Nurse; ATTEND Registered Nurse

== ENCOUNTER 2020-07-16 00:22 | Observation (INO) | END 2020-07-16 02:06 | disposition home or self-care (01) | LOC: 1NENULAB | PROVIDERS: ADMIT Advanced Practice Midwife; ATTEND Advanced Practice Midwife ==

== ENCOUNTER 2020-07-16 19:10 | Inpatient (IN) ==
[2020-07-16] MEDS ORDERED: Ondansetron 4 MG/2 ML VIAL IVP PRN ×2 (19:36→21:32)
[2020-07-16] MEDS ORDERED: Naloxone 0.4 MG/ML INJ IVP PRN ×2 (19:36→21:32)
[2020-07-16] MEDS ORDERED: *HR* Nalbuphine 10 MG/ML AMPUL IV PRN (19:36)
[2020-07-16] MEDS ORDERED: Famotidine 20 MG/2 ML VIAL IVP PRN (19:36)
[2020-07-16] MEDS ORDERED: Metoclopramide 10 MG/2 ML VIAL IVP PRN (19:36)
[2020-07-16] MEDS ORDERED: Azithromycin 500 MG in 0.9 % Sodium Chloride 250 ML IVPB ONE (19:36)
[2020-07-16 20:14] LABS: Basophils % 0.4 %; Eosinophils # 0.1 K/mcL (0.0-0.6); Eosinophils % 0.6 %; Hematocrit 32.8 % (35.3-44.9); Hemoglobin 10.7 g/dL (11.5-15.4); Immature Granulocytes % 2.3 % (0-4); Lymphocytes # 1.2 K/mcL (0.6-4.6); Lymphocytes % 11.2 %; Mean Corpuscular HGB Conc 32.6 g/dL (31.6-35.5); Mean Corpuscular Hemoglobin 28.6 pg (28.0-33.3); Mean Corpuscular Volume 87.7 fL (83.0-100.0); Mean Platelet Volume 9.3 fL (9.4-12.4); Monocytes # 0.4 K/mcL (0.0-1.3); Neutrophils # 8.6 K/mcL (1.6-8.9); Platelet Count 188 K/mcL (140-400); Red Blood Count 3.74 M/mcL (3.82-4.97); Red Cell Distribution Width 14.8 % (11.5-14.5); Segmented Neutrophils % 81.5 %; White Blood Count 10.6 K/mcL (4.3-11.1)
[2020-07-16 20:26] LABS: Amphetamine Screen,Urine Negative ng/mL (Cutoff=1000); Barbiturate Screen,Urine Negative ng/mL (Cutoff=200); Benzodiazepines Screen,Urine Negative ng/mL (Cutoff=200); Cannabinoid Screen,Urine Negative ng/mL (Cutoff = 50); Cocaine Screen,Urine Negative ng/mL (Cutoff= 300); Opiate Screen,Urine Negative ng/mL (Cutoff=300); Phencyclidine Screen,Urine Negative ng/mL (Cutoff=25)
[2020-07-16 20:31] LABS: Alanine Aminotransferase 9 Units/L (7-52); Aspartate Amino Transferase 9 Units/L (13-39); BUN/Creatinine Ratio 17 (6-26); Blood Urea Nitrogen 7 mg/dL (6-20); Lactate Dehydrogenase 124 Units/L (140-271); Uric Acid 3.9 mg/dL (2.3-7.6); eGFR For African Americans > 60 (> 60); eGFR For Non-African Americans > 60 (> 60)
[2020-07-16] MEDS ORDERED: Oxytocin 20 units/ LR 1000 mL 20 UNIT/1,000 ML BAG IVC SCH (21:15)
[2020-07-16 21:22] LABS: Creatinine,Urine 39 mg/dL; Protein/Creatinine Ratio,Urine 0.62 mg/mg (0.00-0.20)
[2020-07-16] MEDS ORDERED: Ropivacaine/PF 0.2% 20 ML VIAL EP ONE (21:32)
[2020-07-16] MEDS ORDERED: EPHEDrine 50 MG/ML VIAL IVP PRN (21:32)
[2020-07-16] MEDS: Ringers Solution, Lactated 1,000 ML IVC SCH (21:44)
[2020-07-16] MEDS ORDERED: Epidural Premix (fent/bupiv) 110 ML EP SCH (21:45)
[2020-07-16] MEDS ORDERED: Acetaminophen 325 MG TABLET PO ONE (23:20)
[2020-07-17] MEDS ORDERED: Ropivacaine/PF 0.2% 20 ML VIAL ONE (02:22)
[2020-07-17] MEDS ORDERED: Famotidine 20 MG/2 ML VIAL IVP ONE (03:08)
[2020-07-17] MEDS ORDERED: Lanolin 7 G OINT...G. TP PRN (07:27)
[2020-07-17] MEDS ORDERED: Benzocaine/Menthol 56 GM AEROSOL SPRAY TP PRN (07:27)
[2020-07-17] MEDS ORDERED: Acetaminophen 325 MG TABLET PO PRN (07:27)
[2020-07-17] MEDS ORDERED: Oxytocin 20 units/ LR 1000 mL 20 UNIT/1,000 ML BAG IVC SCH (07:27)
[2020-07-17] MEDS: Prenatal Vit/FA 1 EACH TABLET PO SCH (08:43)
[2020-07-17] MEDS: Ringers Solution, Lactated 1,000 ML IVC SCH (08:45)
[2020-07-17] MEDS: Ibuprofen 600 MG TABLET PO PRN ×3 (09:53→23:24)
[2020-07-18 07:36] VITALS: BP 118/67
[2020-07-18] MEDS: Ibuprofen 600 MG TABLET PO PRN (08:08)
[2020-07-18] MEDS: Prenatal Vit/FA 1 EACH TABLET PO SCH (08:08)
== END 2020-07-18 11:01 | disposition home or self-care (01) | DRG 807 ==
LOC: 1NENULAB 19:10 → 1NENUOBS 07-17 08:23
PROVIDERS: ADMIT Registered Nurse; ATTEND Registered Nurse